=== PATIENT | female | born 1985 | race Caucasian/White ===

== ENCOUNTER 2022-12-04 17:34 | Emergency (ER) | payer BC, SELFPAY ==
[2022-12-04 17:46] VITALS: BP 104/80; PULSE 106; RESP 16; TEMP 36.4; O2SAT 99
--- NOTE | 2022-12-04 18:32 | ED.URI ---
HPI - URI/Sore Throat General Chief Complaint: Upper Respiratory Infection Stated Complaint: runny nose, congestion Related Data Home Medications Medication Instructions Recorded Confirmed duloxetine 30 mg capsule,delayed 30 mg PO DAILY 12/04/22 12/04/22 release omeprazole 40 mg capsule,delayed 40 mg PO DAILY 12/04/22 12/04/22 release Allergies Allergy/AdvReac Type Severity Reaction Status Date / Time No Known Allergies Allergy Verified 12/04/22 18:03 Course Vital Signs Vital signs: Vital Signs Temperature 36.4 C 12/04/22 17:46 Pulse Rate 106 H 12/04/22 17:46 Respiratory Rate 16 12/04/22 17:46 Blood Pressure 104/80 12/04/22 17:46 Pulse Oximetry 99 12/04/22 17:46 Oxygen Delivery Room Air 12/04/22 17:46 Temperature 36.4 C 12/04/22 17:46 Pulse Rate 106 H 12/04/22 17:46 Respiratory Rate 16 12/04/22 17:46 Blood Pressure 104/80 12/04/22 17:46 Pulse Oximetry 99 12/04/22 17:46 Oxygen Delivery Room Air 12/04/22 17:46 Discharge Plan Discharge Prescriptions: No Action omeprazole 40 mg capsule,delayed release(DR/EC) 40 mg PO DAILY duloxetine 30 mg capsule,delayed release(DR/EC) 30 mg PO DAILY Follow-up/Referrals: Jose Alejandro,Yogi Mckeon MD [Primary Care Provider] -
--- NOTE | 2022-12-04 18:33 | ED.URI ---
HPI - URI/Sore Throat General Chief Complaint: Upper Respiratory Infection Stated Complaint: runny nose, congestion Time Seen by Provider: 12/04/22 18:33 Source: patient, RN notes reviewed and old records reviewed Mode of arrival: ambulatory Limitations: no limitations History of Present Illness HPI Narrative: 37-year-old presents to [facility] with complaints of sinus congestion for 1 month she has tried Zyrtec, Benadryl, Sudafed,equate sinus allergy which will not clear. She reports that she will get a little better for a few hours and then symptoms will get worse.Patient reports that she has not been running a fever and she has no recent cough. Patient denies any acute shortness of breath or any tachypnea with SAO2 99% on room air. MD elicited complaint: rhinorrhea, nasal congestion and sinus pain Onset (ago): month(s) (1) Treatments prior to arrival: cold medicine and other (benadryl) Related Data Home Medications Medication Instructions Recorded Confirmed duloxetine 30 mg capsule,delayed 30 mg PO DAILY 12/04/22 12/04/22 release omeprazole 40 mg capsule,delayed 40 mg PO DAILY 12/04/22 12/04/22 release Allergies Allergy/AdvReac Type Severity Reaction Status Date / Time No Known Allergies Allergy Verified 12/04/22 18:03 Review of Systems Review of Systems: CONSTITUTIONAL: REports malaise, chills, sweats, or fever. EYES: Denies visual changes, redness, or discharge. ENT: Reports rhinorrhea, congestion, sinus pain,no otalgia and sore throat. CARDIOVASCULAR: Denies chest pain, palpitations, or edema. RESPIRATORY: Reports no acute cough.? Denies dyspnea. GASTROINTESTINAL: Denies abdominal pain, nausea, vomiting, diarrhea SKIN: Denies rash or itching. MUSCULOSKELETAL: Denies myalgia. NEUROLOGIC: Reports headache. All systems reviewed & are unremarkable except as noted in HPI and below PMFSH Surgical History Surgical History (Updated 12/04/22 @ 19:22 by Анна Gold NP) H/O: hysterectomy History of eye surgery Previous section Social History Social History (Updated 12/04/22 @ 19:28 by Анна Gold NP) Smoking status: Never smoker Gender identity (if verbalized by the patient): Female Comments At time of signature, agree with nursing past medical, surgical, social and family history. There is no relevant family history pertinent to the presenting complaint Exam Narrative: GENERAL: Well-appearing, well-nourished, and in no acute distress. HEAD: Normocephalic EYES: PERRLA, conjunctivae clear ENT: Nares clear, turbinates edematous and erythematous, clear yellowish discharge. Mucous membranes moist. TM pearly burdick with dull light reflex bilaterally; no tragal tenderness. Oropharynx erythematous without lesions. Tonsils not enlarged and without exudate, no drooling, no hoarseness, no trismus, uvula midline.post nasal drainage NECK: Supple. No lymphadenopathy CHEST: Clear to auscultation, breath sounds equal. No wheezing, rhonchi, rales, or stridor. No respiratory distress, speaks in full sentences.SAO2 99% on room air HEART: Regular rate and rhythm. No murmur heard. SKIN: Warm, dry, no rash. NEURO: Alert and oriented x3. PSYCH: Normal mood and affect Course Course Emergency Course: Patient is aware of diagnosis, understands and agrees to treatment plan.? Anticipatory guidance given.? Patient agrees to follow-up as directed and is aware of reasons to seek care at the emergency department. Portions of this record may have been created with voice recognition software Level of Care: Express Care Visit Vital Signs Vital signs: Vital Signs Temperature 36.4 C 12/04/22 17:46 Pulse Rate 106 H 12/04/22 17:46 Respiratory Rate 16 12/04/22 17:46 Blood Pressure 104/80 12/04/22 17:46 Pulse Oximetry 99 12/04/22 17:46 Oxygen Delivery Room Air 12/04/22 17:46 Temperature 36.4 C 12/04/22 17:46 Pulse Rate 106 H 12/04/22 17:46 Res
== END 2022-12-04 18:53 | disposition home or self-care (01) ==
PROVIDERS: Emergency Provider Registered Nurse; PCP Family Medicine
DX: J32.9 Chronic sinusitis, unspecified (principal)
CPT/HCPCS: 99213; G0463

== ENCOUNTER 2023-11-11 10:52 | Emergency (ER) | payer BC, SELFPAY ==
[2023-11-11 11:20] VITALS: BP 121/83; PULSE 109; RESP 16; TEMP 37.2; O2SAT 100
--- NOTE | 2023-11-11 12:22 | ED.URI ---
HPI - URI/Sore Throat General Chief Complaint: Upper Respiratory Infection Stated Complaint: Cough, body aches Time Seen by Provider: 11/11/23 12:13 Source: patient and RN notes reviewed Mode of arrival: ambulatory Limitations: no limitations History of Present Illness HPI Narrative: Patient presents today complaining 2 day history of sore throat due to cough, cough, with congestion and body aches since yesterday. Currently rates her pain 7/10 and has been taking Tylenol and ibuprofen without much relief. Daughter sick with similar symptoms. Related Data Home Medications Medication Instructions Recorded Confirmed cyanocobalamin (vitamin B-12) 1,000 mcg IM DIRECTED 11/11/23 11/11/23 1,000 mcg/mL injection solution duloxetine 60 mg capsule,delayed 60 mg PO BID 11/11/23 11/11/23 release hydroxyzine HCl 25 mg tablet 25 mg PO DIRECTED 11/11/23 11/11/23 naproxen sodium 550 mg tablet 500 mg PO BID PRN Pain 11/11/23 11/11/23 omeprazole 40 mg capsule,delayed 40 mg PO DAILY 11/11/23 11/11/23 release phentermine 37.5 mg capsule 37.5 mg PO DIRECTED 11/11/23 11/11/23 Allergies Allergy/AdvReac Type Severity Reaction Status Date / Time No Known Allergies Allergy Verified 11/11/23 10:56 Review of Systems Review of Systems: CONSTITUTIONAL: Denies fever, chills, or sweats.+ body aches EYES: Denies visual changes, redness, or discharge. ENT: Denies rhinorrhea, or otalgia.+ sore throat, congestion CARDIOVASCULAR: Denies chest pain, palpitations, or edema. RESPIRATORY: Denies dyspnea.+ cough GASTROINTESTINAL: Denies abdominal pain, nausea, vomiting, or diarrhea. GENITOURINARY: Denies dysuria or hematuria. SKIN: Denies rash, itching, or wounds. MUSCULOSKELETAL: Denies back pain, joint pain, or myalgia. NEUROLOGIC: Denies headache, numbness, tingling, or weakness. PSYCH: Denies depression or anxiety. [facility] Surgical History Surgical History H/O: hysterectomy History of eye surgery Previous section Social History Social History Smoking status: Never smoker Gender identity (if verbalized by the patient): Female Comments At time of signature, I have reviewed and agree with nursing past medical, surgical, social and family history unless otherwise noted. Please see nursing chart for further information. There is no relevant family history pertinent to the presenting complaint Exam Narrative: GENERAL: Mildly ill-appearing, well-nourished, and in no acute distress. HEAD: Normocephalic, atraumatic. EYES: EOMI. No redness or drainage. Conjunctivae normal. ENT: Mucous membranes pink and moist. Nares congested. No rhinorrhea. TMs normal bilaterally. Throat mildly erythematous without edema or exudate. Uvula midline. NECK: Normal AROM. Supple. No lymphadenopathy. CHEST: No respiratory distress. Clear to auscultation. HEART: Regular rate and rhythm. No murmur appreciated. EXTREMITIES: Normal range of motion. No edema. SKIN: Warm, dry, no rash. Capillary refill normal. Normal skin turgor. NEURO: No focal deficits. Alert and oriented x3. Gait steady. PSYCH: Normal affect. No signs of depression or anxiety. Course Course Level of Care: Express Care Visit Vital Signs Vital signs: Vital Signs Temperature 99 F 11/11/23 11:20 Pulse Rate 109 H 11/11/23 11:20 Respiratory Rate 16 11/11/23 11:20 Blood Pressure 121/83 11/11/23 11:20 Pulse Oximetry 100 11/11/23 11:20 Oxygen Delivery Room Air 11/11/23 11:20 Temperature 99 F 11/11/23 11:20 Pulse Rate 109 H 11/11/23 11:20 Respiratory Rate 16 11/11/23 11:20 Blood Pressure 121/83 11/11/23 11:20 Pulse Oximetry 100 11/11/23 11:20 Oxygen Delivery Room Air 11/11/23 11:20 Reviewed MDM - URI/Sore Throat MDM Narrative Medical decision making narrative: Testing negative. Strep cul
== END 2023-11-11 12:34 | disposition home or self-care (01) ==
PROVIDERS: Emergency Provider Nurse Practitioner; PCP Family Medicine
DX: B34.9 Viral infection, unspecified (principal); Z20.822 Contact with and (suspected) exposure to COVID-19; Z79.899 Other long term (current) drug therapy; Z79.1 Long term (current) use of non-steroidal anti-inflammatories (NSAID)
CPT/HCPCS: 87081; 87426; 87804; 87880; 99213; C9803; G0463